=== PATIENT | male | born 1975 | race Caucasian/White ===

== ENCOUNTER → 2018-01-10 | Day surgery (SDC) | payer OTHER ==
[~2018-01-10] MED LIST: BACITRACIN 50,000 UNIT VIAL. ONE; BACL10TA CONT INF; BUPIVACAINE MPF 0.5% 30 ML VIAL. ONE; CLIN300C8 PO; CLON0.1T PO; ESCITALOPRAM OX20 MG PO; ESOM40CA PO; FAMOTIDINE 20 MG/2 ML VIAL ONE; FURO-68 PO; GLIM2TAB2 PO; HYDR4TAB PO; INSU100V13 SQ; IV RINGERS SOLUTION,LACTATED 1,000 ML IV ONE; IV RINGERS SOLUTION,LACTATED 1,000 ML IV SCH; LIDOCAINE 1% PF 2 ML VIAL. ID PRN; LIDOCAINE 1% PF 30 ML VIAL. ONE; LITH300C PO; LORA10TA3 PO; METF10002 PO; MIDAZOLAM HCL PF 2 MG/2 ML VIAL. ONE; NALO25TA PO; ONDANSETRON PF 4 MG/2 ML VIAL. IV PRN; ONDANSETRON PF 4 MG/2 ML VIAL. ONE; POTA20TA4 PO; PROCHLORPERAZINE 10 MG/2 ML VIAL. IV PRN; PROPOFOL 10,000 MCG/ML (20ML) VIAL IV ONE; PROPOFOL 20 ML IV ONE; SIMV10TA3 PO; SITA100T PO; [UNRECOGNIZED DRUG - CODE] IT; ceFAZolin 2GM PREMIX 2 GM/50 ML BAG IV ONE; ceFAZolin SODIUM 2 GM in IV DEXTROSE 5% 50 ML IV ONE
[2018-01-10 12:45] LABS: BASO # 0.1 x10^3/uL (0.0-0.2); BASO % 1 % (0-3); EOS # 0.5 x10^3/uL (0.0-0.7); EOS % 5 % (0-3); HEMATOCRIT 34.5 % (39.0-53.0); HEMOGLOBIN 11.8 g/dL (13.0-17.5); LYMPH # 3.7 x10^3/uL (1.0-4.8); LYMPH % 40 % (24-48); MEAN CORPUSCULAR HEMOGLOBIN 30 pg (25-35); MEAN CORPUSCULAR HGB CONC 34 g/dL (31-37); MEAN CORPUSCULAR VOLUME 88 fL (79-100); MONO # 0.6 x10^3/uL (0.0-1.1); MONO % 7 % (0-9); NEUT # 4.3 x10^3uL (1.8-7.7); NEUT % 47 % (31-73); PLATELET COUNT 248 x10^3/uL (140-400); RED BLOOD COUNT 3.94 x10^6/uL (4.30-5.70); RED CELL DISTRIBUTION WIDTH 13.9 % (11.5-14.5); WHITE BLOOD COUNT 9.1 x10^3/uL (4.0-11.0)
[2018-01-10 14:56] VITALS: BP 114/75
== END ==
LOC: SURG 11:15
PROVIDERS: ATTEND Anesthesiology Pain Medicine
DX: T85.193A Other mechanical complication of implanted electronic neurostimulator, generator, initial encounter (principal); I10 Essential (primary) hypertension; E11.9 Type 2 diabetes mellitus without complications; Z53.8 Procedure and treatment not carried out for other reasons; Z79.899 Other long term (current) drug therapy; Z90.49 Acquired absence of other specified parts of digestive tract
CPT/HCPCS: 36415; 82947; 85025; J0690; J2001; J2250; J2405; J2704; J3010; J3490; J7120; S0028